=== PATIENT | male | born 1935 | race Caucasian/White ===

== ENCOUNTER → 2025-01-25 16:35 | Outpatient (REF) | payer OTHER, SELFPAY | LOC: MRI 3T 16:35 | PROVIDERS: ATTENDING PHYSICIAN Psychiatry & Neurology Neurology; FAMILY PHYSICIAN Nurse Practitioner Family | DX: G45.9 Transient cerebral ischemic attack, unspecified (principal) | CPT/HCPCS: 70553; A9575 ==

== ENCOUNTER → 2025-03-01 13:02 | Outpatient (REF) | payer OTHER, SELFPAY | LOC: HWRAD 13:02 | PROVIDERS: ATTENDING PHYSICIAN Nurse Practitioner Family; FAMILY PHYSICIAN Family Medicine | DX: S00.03XA Contusion of scalp, initial encounter (principal); W19.XXXA Unspecified fall, initial encounter | CPT/HCPCS: 70450 ==